=== PATIENT | female | born 1975 ===

== ENCOUNTER 2019-12-03 07:01 | Day surgery (SDC) | payer OTHER ==
[~2019-12-03 07:01] MED LIST: CELEBREX200MG PO; COZAAR100 MG PO; GABAPENTIN600 MG PO; ZANAFLEX4 MG PO
== END 2019-12-03 13:10 | disposition home or self-care (01) ==
LOC: CIR.AMB 07:01 → ADM 10:15 → CIR.AMB 13:10
DX: N84.0 Polyp of corpus uteri (principal); N84.3 Polyp of vulva